=== PATIENT | male | born 2000 | race African-American/Black ===

== ENCOUNTER 2021-02-22 07:07 | Emergency (ER) | payer BC ==
[~2021-02-22] VITALS: Ht 185.4 cm; Wt 79.5 kg
[2021-02-22 07:12] VITALS: BP 132/73; TEMP 98.6
[2021-02-22 07:30] VITALS: PULSE 76
== END 2021-02-22 07:30 | disposition home or self-care (01) ==
LOC: COL.ER 07:07
DX: M06.9 Rheumatoid arthritis, unspecified (principal)

== ENCOUNTER 2022-01-06 03:35 | Emergency (ER) | payer BC ==
[~2022-01-06] VITALS: Ht 190.5 cm; Wt 85.5 kg
[2022-01-06 03:42] VITALS: BP 135/80; TEMP 99.2
[2022-01-06 04:07] LABS: COLLECTION METHOD CLEAN CATCH
[2022-01-06 04:16] LABS: PH 7 (5-8); SQUAMOUS EPITHELIAL None Seen /hpf (0-10); URINE APPEARANCE Clear (CLEAR/HAZY); URINE BACTERIA None Seen /hpf (NONE SEEN); URINE BLOOD Negative (NEGATIVE); URINE COLOR Straw (YELLOW); URINE GLUCOSE Negative (NEGATIVE); URINE KETONE Negative (NEGATIVE); URINE NITRATE Negative (NEGATIVE); URINE PROTEIN(semi-quant) Negative (NEGATIVE); URINE RBC 0-2 /hpf (0-2); URINE UROBILINOGEN Negative (NEGATIVE)
[2022-01-06 04:19] LABS: STREP SCREEN NEGATIVE
[2022-01-06 04:35] VITALS: PULSE 90
== END 2022-01-06 04:35 | disposition home or self-care (01) ==
LOC: COL.ER 03:35
PROVIDERS: Family Medicine
DX: J06.9 Acute upper respiratory infection, unspecified (principal); Z20.822 Contact with and (suspected) exposure to COVID-19; Z28.311 Partially vaccinated for COVID-19